=== PATIENT | female | born 1930 | race Caucasian/White ===

== ENCOUNTER → 2016-04-08 08:25 | Outpatient (CLI) | payer MEDICARE, OTHER ==
[2014-10-16 15:03] VITALS: BMI 33.0
[~2016-04-08 08:25] MED LIST: COZAAR100 MG PO; NORVASC10 MG PO; OS-CAL500 MG PO; PRAVACHOL80 MG; PRAVACHOL80 MG PO; TIROSINT88 MCG PO; VITAMIN D31000 UNI2 PO; ZOLOFT100 MG PO
== END | disposition home or self-care (01) ==
LOC: D.MRI 08:25
DX: G45.9 Transient cerebral ischemic attack, unspecified (principal)

== ENCOUNTER → 2016-04-28 07:23 | Outpatient (CLI) | payer MEDICARE, OTHER ==
[2014-10-16 15:03] VITALS: BMI 33.0
== END | disposition home or self-care (01) ==
LOC: D.CT 07:23
DX: I65.23 Occlusion and stenosis of bilateral carotid arteries (principal)

== ENCOUNTER → 2017-11-19 14:24 | Outpatient (CLI) | payer MEDICARE, OTHER ==
[2014-10-16 15:03] VITALS: BMI 33.0
[~2017-11-19 14:24] MED LIST changes: +K-DUR20 MEQ PO
[2017-11-19 15:30] LABS: BASOPHILS 0.4 % (0-2); EOSINOPHILS 2.5 % (0-7); HEMATOCRIT 40.5 % (36.0-48.0); HEMOGLOBIN 13.2 g/dL (12-16); IMMATURE GRANULOCYTES 0.4 % (0-5); LYMPHOCYTES 22.2 % (15-50); MCHC 32.6 g/dL (31.0-37.0); MCV 95.1 fL (80.0-100.0); MONOCYTES 10.9 % (2-11); NEUTROPHILS 63.6 % (40-80); RBC 4.26 10x6/uL (4.00-5.40); RDW 14.3 % (11.5-14.5); WBC 12.1 10x3/uL (4.8-10.8)
[2017-11-19 15:31] LABS: PLATELET COUNT 263 10x3/uL (130-400)
[2017-11-19 15:52] LABS: ALBUMIN 3.4 g/dL (3.4-5.0); ANION GAP 10.4 mmol/L (8-16); BILIRUBIN - TOTAL 0.35 mg/dL (0.2-1.3); CALCIUM 10.4 mg/dL (8.5-10.1); CARBON DIOXIDE 33.4 mmol/L (21.0-32.0); POTASSIUM - SERUM 3.8 mmol/L (3.5-5.1); PROTEIN - SERUM 7.4 g/dL (6.4-8.2)
== END | disposition home or self-care (01) ==
LOC: D.LABREF 14:24
PROVIDERS: Family Medicine
DX: E86.0 Dehydration (principal)

== ENCOUNTER → 2017-11-19 17:30 | Outpatient (CLI) | payer MEDICARE, OTHER ==
[2014-10-16 15:03] VITALS: BMI 33.0
== END | disposition home or self-care (01) ==
LOC: D.LABREF 17:30
DX: E86.0 Dehydration (principal)

== ENCOUNTER 2017-12-18 00:26 | Emergency (ER) | payer MEDICARE, OTHER ==
[~2017-12-18] VITALS: Ht 157.5 cm; Wt 2.3 kg
[2017-12-18 00:26] VITALS: Ht 157.5 cm; Wt 2.3 kg
[~2017-12-18 00:26] MED LIST changes: -K-DUR20 MEQ PO
[2017-12-18 02:24] LABS: BASOPHILS 0.2 % (0-2); EOSINOPHILS 1.6 % (0-7); HEMATOCRIT 37.9 % (36.0-48.0); HEMOGLOBIN 12.6 g/dL (12-16); IMMATURE GRANULOCYTES 0.4 % (0-5); LYMPHOCYTES 9.2 % (15-50); MCH 30.8 pg (26.0-34.0); MCHC 33.2 g/dL (31.0-37.0); MCV 92.7 fL (80.0-100.0); MEAN PLATELET VOLUME 10.7 fL (7.4-10.4); MONOCYTES 8.5 % (2-11); NEUTROPHILS 80.1 % (40-80); PLATELET COUNT 252 10x3/uL (130-400); RBC 4.09 10x6/uL (4.00-5.40); RDW 13.8 % (11.5-14.5); WBC 16.1 10x3/uL (4.8-10.8)
[2017-12-18 02:34] LABS: ALBUMIN 3.4 g/dL (3.4-5.0); ANION GAP 8.7 mmol/L (8-16); BILIRUBIN - TOTAL 0.31 mg/dL (0.2-1.3); CALCIUM 9.5 mg/dL (8.5-10.1); CARBON DIOXIDE 30.2 mmol/L (21.0-32.0); CREATININE - SERUM 0.9 mg/dL (0.6-1.3); MAGNESIUM - SERUM 1.8 mg/dL (1.8-2.4); PROTEIN - SERUM 7.1 g/dL (6.4-8.2)
[2017-12-18 02:36] LABS: POTASSIUM - SERUM 2.9 mmol/L (3.5-5.1)
[2017-12-18] MEDS ORDERED: K-DUR20 MEQ PO (02:44)
[2017-12-18 04:57] VITALS: BP 126/78
== END 2017-12-18 06:10 | disposition home or self-care (01) ==
LOC: D.ER 00:26
PROVIDERS: Emergency Medicine
DX: R10.9 Unspecified abdominal pain (principal); K59.00 Constipation, unspecified; E87.6 Hypokalemia; R11.10 Vomiting, unspecified